=== PATIENT | male | born 1995 | race Caucasian/White ===

== ENCOUNTER 2020-05-24 01:04 | Emergency (ER) | payer MEDICAID ==
[~2020-05-24] VITALS: Ht 185.4 cm; Wt 84.1 kg
[2020-05-24] MEDS ORDERED: NO HOME MEDS (02:45)
[2020-05-24 02:55] LABS: URINE AMPHETAMINE SCREEN NEGATIVE (Neg); URINE BARBITUATE SCREEN NEGATIVE (Neg); URINE BENZODIAZEPINES SCREEN NEGATIVE (Neg); URINE CANNABINOID SCREEN POSITIVE (Neg); URINE COCAINE SCREEN NEGATIVE (Neg); URINE METHADONE SCREEN NEGATIVE (Neg); URINE OPIATE SCREEN NEGATIVE (Neg); URINE PHENCYCLIDINE SCREEN NEGATIVE (Neg)
[2020-05-24 02:57] LABS: BASOPHILS # (AUTO) 0.1 X10'3 (0-0.2); BASOPHILS % (AUTO) 0.7 % (0-1); EOSINOPHILS # (AUTO) 0.2 X10'3 (0-0.9); EOSINOPHILS % (AUTO) 1.9 % (0-6); HEMATOCRIT 47.8 % (42.0-52.0); HEMOGLOBIN 16.2 g/dl (14.0-17.9); MEAN CORPUSCULAR HEMOGLOBIN 30.9 PG (27.0-31.0); MEAN CORPUSCULAR VOLUME 90.9 FL (78-98); MEAN PLATELET VOLUME 9.2 FL (7.4-10.4); MONOCYTES # (AUTO) 0.8 X10'3 (0-0.9); MONOCYTES % (AUTO) 9.5 % (2-12); NEUTROPHILS # (AUTO) 5.6 X10'3 (1.8-7.7); NEUTROPHILS % (AUTO) 64.9 % (42-75); PLATELET COUNT 195 X10'3 (140-440); RED BLOOD COUNT 5.26 X10'6 (4.70-6.10); RED CELL DISTRIBUTION WIDTH 13.3 % (11.5-14.5); WHITE BLOOD COUNT 8.6 X10'3 (4.5-11.0)
[2020-05-24 03:07] LABS: ALANINE AMINOTRANSFERASE 37 U/L (12-78); ALBUMIN 5.2 G/DL (3.4-5.0); ALBUMIN/GLOBULIN RATIO 1.8 (1.1-1.5); ALKALINE PHOSPHATASE 103 IU/L (46-116); ANION GAP 12 (8-16); ASPARTATE AMINO TRANSFERASE 27 U/L (10-37); BILIRUBIN,TOTAL 0.5 MG/DL (0.1-1.0); BLOOD UREA NITROGEN 19 MG/DL (7-18); BUN/CREATININE RATIO 18.1 (5.4-32.0); CALCIUM 9.2 MG/DL (8.5-10.1); CHLORIDE 105 MMOL/L (99-107); CREATININE 1.05 MG/DL (0.60-1.10); GLUCOSE 102 MG/DL (70-104); POTASSIUM 3.7 MMOL/L (3.5-5.1); SODIUM 142 MMOL/L (135-145); TOTAL CARBON DIOXIDE 25.3 MMOL/L (24-32); TOTAL PROTEIN 8.1 G/DL (6.4-8.2); eGFR 88 ML/MIN
[2020-05-24 03:19] LABS: ACETAMINOPHEN < 2.0 UG/ML (10-30); ETHANOL < 0.010 GM/DL (0.0-0.010)
--- NOTE | 2020-05-24 07:00 | NUR ---
Pt ambulates steady gait to room. He called his friend not to pick him up today for work. He is pleasant, cooperative,calm.
--- NOTE | 2020-05-24 08:00 | NUR ---
Pt eating breakfast at bedside
--- NOTE | 2020-05-24 10:10 | NUR ---
Pt sleeping, NAD
--- NOTE | 2020-05-24 12:45 | NUR ---
Pt awake to eat lunch
--- NOTE | 2020-05-24 14:27 | NUR ---
Pt resting, NAD
--- NOTE | 2020-05-24 17:02 | NUR ---
Pt sleeping, resp even, unlabored
[2020-05-24 17:40] VITALS: BP 139/78
--- NOTE | 2020-05-24 18:45 | NUR ---
Pt resting in bed. No MH hx. He denies SI and Dep, but endorses anxiety 11/29 related to "sitting here and ruminating all day. It is boring." Pt said that he was able to process the triggering events of the previous evening: "I had a lot happen at once; my gf, she is my first love, and our relasdtionship is too dependent and ups and downs, anyway, she broke up with me and took the car. It made me really sad, and then I started thinking about my mother who when I was 18, and that just sent me over the edge so I called the hotline for help". Pt states he has tried to process his mothers on his own and has made good progress but acknowledges seeking professional help of a counselor would be good "because I still have a lot to work through, I guess. My family has told me to do that to, and I should." Pt seems gensherwinley open to it. He has a strong support system with his father and brother. Pt affect is appropriate, he makes good eye contact, insight is good.
--- NOTE | 2020-05-24 19:38 | NUR ---
[facility] evaluated pt; he is to be discharged.
--- NOTE | 2020-05-24 19:47 | NUR ---
Reviewed discharge paperwork with pt, pt verbalized understanding. Pt given and this RN reviewed community resources list for counseling. Pt contracted a plan for safety with [facility]. Will be picked up and staying with his brother this evening.
== END 2020-05-24 20:06 | disposition home or self-care (01) ==
LOC: ER 01:05
DX: R45.851 Suicidal ideations (principal)
CPT/HCPCS: 36415; 80053; 80305; 80320; 80329; 84443; 85025; 99283; 99285

== ENCOUNTER 2022-05-13 16:41 | Emergency (ER) | payer MEDICAID ==
[~2022-05-13 16:41] MED LIST: NO HOME MEDS
--- NOTE | 2022-05-13 16:53 | NUR ---
PT WAS FOUND SITTING IN AN AMBULANCE IN THE AMBULANCE BAY, REFUSING TO GET OUT. SECURITY WAS CALLED AND PT RESISTED, BITING ONE OF THE SECURITY GUARDS. [facility] WAS CALLED, PT WAS ARRESTED AND MEDICAL CLEARANCE WAS DONE BY NOAH UREÑA PT WAS UNCOOPERATIVE, COMBATIVE AND AGGITATED; A SAFETY RISK TO SELF AND OTHERS, AND WAS UNABLE TO OBTAIN VS. PT WAS EVALUATED AND MEDICALLY CLEARED FOR SKILLED NURSING BY JAMMIE; SEE PROVIDER NOTES
== END 2022-05-13 17:01 | disposition home or self-care (01) ==
LOC: ER 16:43
DX: T75.4XXA Electrocution, initial encounter (principal); W86.8XXA Exposure to other electric current, initial encounter; Y93.89 Activity, other specified; Y92.89 Other specified places as the place of occurrence of the external cause; Y99.8 Other external cause status
CPT/HCPCS: 99283

== ENCOUNTER 2022-05-15 14:47 | Emergency (ER) | payer MEDICAID ==
[~2022-05-15] VITALS: Ht 177.8 cm; Wt 81.8 kg
[2022-05-15] MEDS ORDERED: TETanus/Pertussis (Acell)/Diphther VAC/PF (Tdap-Adult) 0.5ml syringe IMVAC ONE (15:30)
[2022-05-15] MEDS ORDERED: amox tr/potassium clavulanate 875/125mg TAB PO ONE (15:30)
[2022-05-15] MEDS ORDERED: AMOX-117 PO (15:42)
[2022-05-15] MEDS ORDERED: potassium Cl 20 mEq SR tablet PO ONE (15:45)
[2022-05-15] MEDS ORDERED: magnesium 2GM in 50ml NS 50 ML IV SCH (15:45)
[2022-05-15] MEDS ORDERED: potassium CL 10mEq/100ml bag 100 ML IV SCH (15:45)
[2022-05-15 16:08] VITALS: BP 145/99
== END 2022-05-15 16:12 ==
LOC: ER 14:48
DX: S81.831A Puncture wound without foreign body, right lower leg, initial encounter (principal); W54.0XXA Bitten by dog, initial encounter; Y93.89 Activity, other specified; Y92.89 Other specified places as the place of occurrence of the external cause; Y99.8 Other external cause status
CPT/HCPCS: 90471; 90715; 99283; 99284

== ENCOUNTER 2022-12-30 11:27 | Outpatient (CLI) | payer MEDICAID | END 2022-12-30 23:59 | disposition home or self-care (01) | LOC: RAD 11:27 | PROVIDERS: ATTEND Nurse Practitioner Psychiatric/Mental Health | DX: Z79.899 Other long term (current) drug therapy (principal) | CPT/HCPCS: 93005 ==